=== PATIENT | female | born 1940 | race Caucasian/White ===

== ENCOUNTER → 2016-09-28 | Outpatient (CLI) | payer MEDICARE ==
[~2016-09-28] MED LIST: ACET500C PO; AMBI10TA PO; AUGM875T PO; CALCTAB80 PO; CHOL50006 PO; D-50TAB PO; DICL1GEL TOPICAL; DICL1GEL7 TOPICAL; DIGO0.12 PO; DILT120C15 PO; DILTSR120 PO; HYDR-3516 PO; LORTA5 PO; MUPI2CRE3 EX; MUPI2OIN TOPICAL; TYLE500T PO; ZOLP10TA3 PO
[2016-09-28 12:10] LABS: BASOPHIL # 0.1 TH/MM3 (0-0.2); BASOPHIL % 0.6 % (0.0-2.0); EOSINOPHIL # 0.1 TH/MM3 (0-0.4); EOSINOPHIL % 0.7 % (0.0-4.0); HEMATOCRIT 40.8 % (35.0-46.0); HEMO FLAGS DIFF FINAL; LYMPH % 22.1 % (9.0-44.0); LYMPHOCYTE # 2.2 TH/MM3 (1.0-4.8); MEAN CELL VOLUME 90.3 FL (80.0-100.0); MEAN CORPUSCULAR HEMOGLOBIN 29.6 PG (27.0-34.0); MEAN CORPUSCULAR HGB CONC 32.8 % (32.0-36.0); MONO % 7.5 % (0.0-8.0); NEUT % 69.1 % (16.0-70.0); PLATELET COUNT 293 TH/MM3 (150-450); RED BLOOD COUNT 4.52 MIL/MM3 (4.00-5.30); RED CELL DISTRIBUTION WIDTH 13.7 % (11.6-17.2); WHITE BLOOD COUNT 10.1 TH/MM3 (4.0-11.0)
[2016-09-28 12:14] LABS: APTT (PATIENT) 24.1 SEC (24.3-30.1); INTERNATIONAL NORMALIZED RATIO 0.9 RATIO
[2016-09-28 12:15] LABS: BACTERIA, URINE RARE /hpf; BLOOD, URINE NEG (NEG); COMMENT (UR) CULT NOT INDICATED; CULTURE IF INDICATED CULT NOT INDICATED; GLUCOSE,URINE NEG (NEG); KETONE, URINE NEG (NEG); MUCUS URINE FEW /lpf (OCC); NITRITE,URINE NEG (NEG); URINE COLOR LIGHT-YELLOW (YELLW/STRAW)
[2016-09-28 12:30] LABS: BICARBONATE 30.4 MEQ/L (21.0-32.0); POTASSIUM 4.2 MEQ/L (3.5-5.1)
== END ==
LOC: ELAB 09:23
PROVIDERS: ATTEND Orthopaedic Surgery
DX: G56.01 Carpal tunnel syndrome, right upper limb (principal); M79.609 Pain in unspecified limb; Z79.01 Long term (current) use of anticoagulants; Z96.60 Presence of unspecified orthopedic joint implant
CPT/HCPCS: 36415; 80048; 81001; 85025; 85610; 85730

== ENCOUNTER → 2016-10-02 | Day surgery (SDC) | payer MEDICARE, OTHER ==
[~2016-10-02] VITALS: Ht 162.6 cm; Wt 66.8 kg
[~2016-10-02] MED LIST changes: +*morphine SULFATE 8 MG/ML PERIprocedure ONLY ONE; +ACETAMINOPHEN 1000 MG/100 ML VIAL IV ONE; +ACETAMINOPHEN/HYDROcodone 325 MG/5 MG TAB PO PRN; +CHLORHEXIDINE GLUCONATE 2 % 1 PACK (2 CLOTHS) TOPICAL PRN; +CHLORHEXIDINE GLUCONATE 4% SOLN 120 ML BTL TOPICAL SCH; +DO NOT ADM ANY ANTICOAGULANT DRUGS PRN; +GENTAMICIN SULFATE 80 MG/2 ML VIAL IRRIGATION ONE; +INSULIN HUMAN REGULAR 1,000 UNITS/10 ML VIAL SQ PRN; +LACTATED RINGER'S 1000 ML IV PRN; +METOPROLOL TARTRATE 25 MG TAB PO PRN; +MIDAZOLAM HCL 2 MG/2 ML VIAL ONE; +MORPHINE SULFATE 4 MG/ML INJ IV PUSH PRN; +ONDANSETRON HCL 4 MG/2 ML VIAL IV PRN; +ONDANSETRON HCL 4 MG/2 ML VIAL IV PUSH ONE; +POVIDONE IODINE 5% (ANTISEPSIS KIT) 4 APPLICATIONS EACH NARE PRN; +PROPOFOL 200 MG/20 ML AMP IV ONE; +SODIUM CHLORID 0.9% 500 ML IV PRN; +VANCOMYCIN 1000 MG/NS 250 ML (for <70 kg) IV SCH; +ceFAZolin 2 GM PREMIX 50 ML IV SCH
[2016-10-02 10:51] VITALS: BP 164/73; PULSE 82; RESP 18; TEMP 98.6; O2SAT 95
--- NOTE | 2016-10-02 14:54 | PD.OP ---
cc: Salvador Frye Jr., MD Operative Report Date of Surgery: Oct 02, 2016 Preoperative Diagnosis: 1- right ring trigger finger 2- right dequervains tenosynovitis Postoperative Diagnosis: same Procedure: 1-right ring trigger finger release 2- right wrist 1st dorsal compartment release Anesthesia: gen Surgeon: Salvador Frye Financial Reporting Accountant(s): staff Resident Surgeon: none Operation and Findings: INDICATION FOR PROCEDURE Patient was seen and evaluated preoperatively and found to have debilitating wrist right dequervains tenosynovitis and right ring trigger finger. More than 6 months of Increasing activity related pain that has become debilitating in the wrist and hand and now is interfering with the ability to perform activities of daily living. During that time, the patient has failed conservative treatment such as activity modification, use of wrist brace, po NSAIDS, physical therapy, multiple steroid injections. I discussed the treatment plan with the patient who expressed verbal understanding and agrees with my recommendations. All questions answered. Informed consent was obtained after detailed discussion of risk and benefits of surgery. Operative site was marked. A timeout was performed and agreed upon all members of the surgical team to identify the patient's name, age, operative site, operating surgeon, medical record number and planned procedure. IV sedation and anesthsia were administered by anesthesiologist. Operative arm was prepped with alcohol followed by Hibiclens and draped in usual sterile fashion. Procedure began with a small horizontal incision at the distal palmar crease overlying the MP joint and the A1 rich. Dissection taken down through the subcutaneous tissue wall taking care not to injure the palmar neurovascular bundle. The A1 rich was identified. There was significant cystic changes and hypertrophy of the flexor tendon causing triggering on exam. A1 rich was carefully released to its proximal and distal extent. Examination after the release revealed no triggering and smooth tracking and excursion of the flexor tendon. Hemostasis was obtained. The wound was then Thoroughly irrigated and closed with 3-0 vicryl. Sterile dressing applied. The radial styloid was palpated and marked. A small incision was made overlying the 1st DC. Dissection was taken down the level of the retinaculum and the 1st DC, containing APL/EPB was opened and released. There was significant synovitis of the tendons. The tendons were elevated and freed from the floor the compartment to ensure there were no further adhesions, subsheaths, additional compartment, septum or osteophytes present. The wound was irrigated, closed with 3-0 Vicryl and 2-0 nylon at the skin. Sterile dressing was applied and the patient was placed in a well-padded radial gutter splint. There were no complications. Patient extubated and transferred to PACU in stable condition. POSTP-OP PLAN OF ACTIVITY Antibiotics: none postop Antiocoagulation: none Weight bearing status: NWB in splint, which will be removed in the office within 2 weeks. Dressing: Do not remove splints/cast. Dispo: expected discharge same day Salvador Frye Jr., MD Oct 02, 2016 14:54
[2016-10-02 15:45] VITALS: BP 151/64; PULSE 70; RESP 20; TEMP 98; O2SAT 95
== END | disposition home or self-care (01) ==
LOC: HSDC 09:48
PROVIDERS: ATTEND Orthopaedic Surgery
DX: M65.4 Radial styloid tenosynovitis [de Quervain] (principal); M65.341 Trigger finger, right ring finger; I48.91 Unspecified atrial fibrillation
CPT/HCPCS: 01810; 25000; 26055; 86850; 86900; 86901; J0131; J0690; J1580; J2250; J2270; J2405; J3010; J3370; J7050

== ENCOUNTER → 2016-12-07 | Outpatient (CLI) | payer MEDICARE ==
[~2016-12-07] MED LIST changes: -*morphine SULFATE 8 MG/ML PERIprocedure ONLY ONE; -ACETAMINOPHEN 1000 MG/100 ML VIAL IV ONE; -ACETAMINOPHEN/HYDROcodone 325 MG/5 MG TAB PO PRN; -AMBI10TA PO; -AUGM875T PO; -CHLORHEXIDINE GLUCONATE 2 % 1 PACK (2 CLOTHS) TOPICAL PRN; -CHLORHEXIDINE GLUCONATE 4% SOLN 120 ML BTL TOPICAL SCH; -CHOL50006 PO; -DICL1GEL TOPICAL; -DILTSR120 PO; -DO NOT ADM ANY ANTICOAGULANT DRUGS PRN; -GENTAMICIN SULFATE 80 MG/2 ML VIAL IRRIGATION ONE; -INSULIN HUMAN REGULAR 1,000 UNITS/10 ML VIAL SQ PRN; -LACTATED RINGER'S 1000 ML IV PRN; -LORTA5 PO; -METOPROLOL TARTRATE 25 MG TAB PO PRN; -MIDAZOLAM HCL 2 MG/2 ML VIAL ONE; -MORPHINE SULFATE 4 MG/ML INJ IV PUSH PRN; -MUPI2CRE3 EX; -ONDANSETRON HCL 4 MG/2 ML VIAL IV PRN; -ONDANSETRON HCL 4 MG/2 ML VIAL IV PUSH ONE; -POVIDONE IODINE 5% (ANTISEPSIS KIT) 4 APPLICATIONS EACH NARE PRN; -PROPOFOL 200 MG/20 ML AMP IV ONE; -SODIUM CHLORID 0.9% 500 ML IV PRN; -TYLE500T PO; -VANCOMYCIN 1000 MG/NS 250 ML (for <70 kg) IV SCH; -ceFAZolin 2 GM PREMIX 50 ML IV SCH
[2016-12-07 11:49] LABS: BASOPHIL # 0.1 TH/MM3 (0-0.2); BASOPHIL % 0.6 % (0.0-2.0); EOSINOPHIL # 0.1 TH/MM3 (0-0.4); EOSINOPHIL % 0.8 % (0.0-4.0); HEMATOCRIT 41.7 % (35.0-46.0); HEMO FLAGS DIFF FINAL; LYMPH % 21.6 % (9.0-44.0); LYMPHOCYTE # 2.2 TH/MM3 (1.0-4.8); MEAN CORPUSCULAR HEMOGLOBIN 30.1 PG (27.0-34.0); MEAN CORPUSCULAR HGB CONC 33.4 % (32.0-36.0); MONO % 7.5 % (0.0-8.0); NEUT % 69.5 % (16.0-70.0); PLATELET COUNT 332 TH/MM3 (150-450); RED BLOOD COUNT 4.64 MIL/MM3 (4.00-5.30); RED CELL DISTRIBUTION WIDTH 13.9 % (11.6-17.2)
[2016-12-07 11:59] LABS: URINE TOTAL PROTEIN TIMED 20.9 MG/DL
[2016-12-07 12:08] LABS: ANION GAP 4 MEQ/L (5-15); AST (GOT) 20 U/L (15-37); BICARBONATE 31.8 MEQ/L (21.0-32.0); BLOOD UREA NITROGEN 19 MG/DL (7-18); CHLORIDE 107 MEQ/L (98-107); GLOMERULAR FILTRATION RATE 71 ML/MIN (>89); GLUCOSE,FASTING 73 MG/DL (74-99); SODIUM (NA) 143 MEQ/L (136-145)
[2016-12-07 12:20] LABS: ALKALINE PHOSPHATASE 85 U/L (45-117); ALT (GPT) 32 U/L (10-53); FERRITIN 20 NG/ML (8-252); IMMUNOGLOBULIN A 127 MG/DL (90-497); IMMUNOGLOBULIN G 824 MG/DL (650-1610); IMMUNOGLOBULIN M 250 MG/DL (42-255); KAPPA LAMBDA RATIO 1.75 (1.57-3.93); LAMBDA LIGHT CHAIN 116 MG/DL (90-210); TOTAL BILIRUBIN ADULT 0.3 MG/DL (0.2-1.0); TOTAL PROTEIN SPE 7.2 GM/DL (6.0-7.6); TRANSFERRIN IRON PROFILE 195 MG/DL (200-360)
[2016-12-07 14:53] LABS: FREE T4 0.98 NG/DL (0.76-1.46)
[2016-12-08 09:21] LABS: ALBUMIN SPE 4.49 GM/DL (3.50-5.00); ALPHA 1 GLOBULIN 0.24 GM/DL (0.11-0.29); ALPHA 2 GLOBULIN 0.82 GM/DL (0.22-1.00); BETA GLOBULINS (SPE) 0.71 GM/DL (0.53-1.03)
== END ==
LOC: ELAB 09:28
PROVIDERS: ATTEND Internal Medicine
DX: R53.83 Other fatigue (principal); E55.9 Vitamin D deficiency, unspecified; E61.1 Iron deficiency
CPT/HCPCS: 36415; 80053; 82306; 82728; 82784; 83540; 83550; 83883; 84165; 84439; 84443; 85025; 86334; 86335

== ENCOUNTER → 2017-03-08 | Outpatient (CLI) | payer MEDICARE ==
[2017-03-08 10:51] LABS: KAPPA LAMBDA RATIO 1.79 (1.57-3.93)
[2017-03-09 10:41] LABS: ALBUMIN SPE 4.5 GM/DL (3.50-5.00); ALPHA 1 GLOBULIN 0.19 GM/DL (0.11-0.29); ALPHA 2 GLOBULIN 0.76 GM/DL (0.22-1.00); BETA GLOBULINS (SPE) 0.67 GM/DL (0.53-1.03)
== END ==
LOC: ELAB 07:06
PROVIDERS: ATTEND Internal Medicine
DX: D47.2 Monoclonal gammopathy (principal); Z79.899 Other long term (current) drug therapy
CPT/HCPCS: 36415; 80162; 82784; 83883; 84165; 86334

== ENCOUNTER → 2017-05-17 | Outpatient (CLI) | payer MEDICARE, OTHER ==
[2017-05-17 09:17] LABS: AUTOMATED NEUTROPHIL # 4.9 TH/MM3 (1.8-7.7); BASOPHIL % 0.6 % (0.0-2.0); EOSINOPHIL # 0.1 TH/MM3 (0-0.4); EOSINOPHIL % 1.6 % (0.0-4.0); HEMATOCRIT 40.4 % (35.0-46.0); HEMO FLAGS DIFF FINAL; LYMPH % 25.7 % (9.0-44.0); LYMPHOCYTE # 1.9 TH/MM3 (1.0-4.8); MEAN CELL VOLUME 91.2 FL (80.0-100.0); MEAN CORPUSCULAR HEMOGLOBIN 30.7 PG (27.0-34.0); MEAN CORPUSCULAR HGB CONC 33.7 % (32.0-36.0); MONO % 7.2 % (0.0-8.0); NEUT % 64.9 % (16.0-70.0); PLATELET COUNT 269 TH/MM3 (150-450); RED BLOOD COUNT 4.43 MIL/MM3 (4.00-5.30); RED CELL DISTRIBUTION WIDTH 13.7 % (11.6-17.2); WHITE BLOOD COUNT 7.5 TH/MM3 (4.0-11.0)
[2017-05-17 10:16] LABS: ALT (GPT) 25 U/L (10-53); ANION GAP 5 MEQ/L (5-15); AST (GOT) 12 U/L (15-37); BICARBONATE 28.9 MEQ/L (21.0-32.0); BLOOD UREA NITROGEN 14 MG/DL (7-18); CHLORIDE 108 MEQ/L (98-107); GLOMERULAR FILTRATION RATE 83 ML/MIN (>89); GLUCOSE,FASTING 89 MG/DL (74-99); SODIUM (NA) 142 MEQ/L (136-145)
[2017-05-17 10:19] LABS: ALKALINE PHOSPHATASE 81 U/L (45-117); TOTAL BILIRUBIN ADULT 0.4 MG/DL (0.2-1.0); TRANSFERRIN IRON PROFILE 196 MG/DL (200-360)
[2017-05-17 11:04] LABS: FERRITIN 17 NG/ML (8-252)
== END ==
LOC: ELAB 07:26
PROVIDERS: ATTEND Internal Medicine
DX: E61.1 Iron deficiency (principal); E55.9 Vitamin D deficiency, unspecified; D12.6 Benign neoplasm of colon, unspecified
CPT/HCPCS: 36415; 80053; 82306; 82728; 83540; 83550; 85025

== ENCOUNTER → 2017-07-16 | Outpatient (CLI) | payer MEDICARE, OTHER ==
[2017-07-16 12:32] LABS: BICARBONATE 30.8 MEQ/L (21.0-32.0); CALCIUM 10.5 MG/DL (8.5-10.1); CREATININE 0.91 MG/DL (0.50-1.00)
== END ==
LOC: ELAB 10:22
PROVIDERS: ATTEND Internal Medicine Interventional Cardiology
DX: I10 Essential (primary) hypertension (principal)
CPT/HCPCS: 36415; 80048

== ENCOUNTER → 2017-11-01 | Outpatient (CLI) | payer MEDICARE, OTHER ==
[2017-11-01 10:34] LABS: AUTOMATED NEUTROPHIL # 4.7 TH/MM3 (1.8-7.7); BASOPHIL % 0.4 % (0.0-2.0); EOSINOPHIL # 0.1 TH/MM3 (0-0.4); EOSINOPHIL % 1.3 % (0.0-4.0); HEMATOCRIT 41.8 % (35.0-46.0); LYMPH % 24.1 % (9.0-44.0); LYMPHOCYTE # 1.7 TH/MM3 (1.0-4.8); MEAN CELL VOLUME 90.7 FL (80.0-100.0); MEAN CORPUSCULAR HEMOGLOBIN 30.3 PG (27.0-34.0); MEAN CORPUSCULAR HGB CONC 33.4 % (32.0-36.0); MEAN PLATELET VOLUME 7.4 FL (7.0-11.0); MONO % 6.3 % (0.0-8.0); MONOCYTE # 0.4 TH/MM3 (0-0.9); NEUT % 67.9 % (16.0-70.0); PLATELET COUNT 285 TH/MM3 (150-450); WHITE BLOOD COUNT 6.9 TH/MM3 (4.0-11.0)
[2017-11-01 10:52] LABS: ALBUMIN 4.1 GM/DL (3.4-5.0); AST (GOT) 15 U/L (15-37); BICARBONATE 29.5 MEQ/L (21.0-32.0); BLOOD UREA NITROGEN 16 MG/DL (7-18); CALCIUM 9.3 MG/DL (8.5-10.1); CHLORIDE 108 MEQ/L (98-107); CREATININE 0.84 MG/DL (0.50-1.00); GLOMERULAR FILTRATION RATE 66 ML/MIN (>89); GLUCOSE,FASTING 97 MG/DL (74-99); SODIUM (NA) 144 MEQ/L (136-145)
[2017-11-01 10:54] LABS: ALKALINE PHOSPHATASE 87 U/L (45-117); ALT (GPT) 27 U/L (10-53); TOTAL BILIRUBIN ADULT 0.4 MG/DL (0.2-1.0); TOTAL PROTEIN 7.3 GM/DL (6.4-8.2)
[2017-11-01 11:05] LABS: FREE T4 1.01 NG/DL (0.76-1.46); KAPPA LAMBDA RATIO 1.85 (1.57-3.93)
[2017-11-02 22:07] LABS: ALB/GLOB RATIO (SPE) 1.79 (1.39-2.23)
[2017-11-03 23:51] LABS: KAPPA/LAMBDA FREE 1.15 (0.26-1.65)
== END ==
LOC: ELAB 07:28
PROVIDERS: ATTEND Internal Medicine
DX: E78.5 Hyperlipidemia, unspecified (principal); I48.0 Paroxysmal atrial fibrillation; D47.2 Monoclonal gammopathy; E55.9 Vitamin D deficiency, unspecified
CPT/HCPCS: 36415; 80053; 82306; 82728; 82784; 83883; 84165; 84439; 84443; 85025; 86334